=== PATIENT | female | born 1990 | race Caucasian/White ===

== ENCOUNTER 2023-01-26 13:02 | Emergency (ER) | payer MEDICAID ==
[~2023-01-26] VITALS: Ht 162.6 cm; Wt 63.5 kg
[2023-01-26] MEDS ORDERED: ACETAMINOPHEN 325 MG TABLET ONE (13:29)
[2023-01-26] MEDS ORDERED: LIDOCAINE 5% PATCH TD ONE ×2 (13:29→13:30)
[2023-01-26] MEDS ORDERED: ACETAMINOPHEN 325 MG TABLET PO ONE (13:30)
[2023-01-26] MEDS ORDERED: NAPR-1192 PO (14:17)
--- NOTE | 2023-01-26 14:39 | NUR ---
Applied left arm sling, PMS intact afterwards. Gave pt RX and d/c instructions, pt verbalized understanding.
== END 2023-01-26 14:45 | disposition home or self-care (01) ==
LOC: ER 13:02
DX: M25.512 Pain in left shoulder (principal); Z91.018 Allergy to other foods; Z79.1 Long term (current) use of non-steroidal anti-inflammatories (NSAID)
CPT/HCPCS: 73030; 73060; A4663